=== PATIENT | male | born 1985 | race Caucasian/White ===

== ENCOUNTER 2017-05-27 10:31 | Emergency (ER) | payer OTHER ==
[2017-05-27 10:45] VITALS: RESP 16
--- NOTE | 2017-05-27 13:04 | EDPHY ---
H & P Time Seen by Provider: 05/27/17 11:23 HPI/ROS: CHIEF COMPLAINT: Left middle finger injury HISTORY OF PRESENT ILLNESS: 31-year-old male presents to the emergency department with injury to the right middle finger. The patient was at work and accidentally cut his finger on a piece of metal. The incident happened just prior to arrival. He is right-hand dominant. He is unsure of his last tetanus shot. Denies any other trauma or injury. ROS: Denies numbness or tingling in his fingers, retained foreign body. Past Medical/Surgical History: Negative Social History: Single and lives in [place] Smoking Status: Never smoked Physical Exam: On examination the patient has a 1.5 cm laceration over the dorsal aspect of his left 3rd finger overlying proximal phalanx. Normal sensation to light touch. No palpable bony tenderness. Obvious extensor tendon laceration noted. No evidence of retained foreign body. Full range of motion of his fingers including full extension. The other fingers do not appear injured. Constitutional: Initial Vital Signs Temperature (C) 36.9 C 05/27/17 10:42 Heart Rate 81 05/27/17 10:42 Respiratory Rate 16 05/27/17 10:42 Blood Pressure 139/105 H 05/27/17 10:42 O2 Sat (%) 93 05/27/17 10:42 O2 Delivery Mode Room Air Allergies/Adverse Reactions: No Known Allergies Allergy (Unverified 05/27/17 10:45) Home Medications: Medication Instructions Recorded Albuterol 5 mg/ml INH 05/27/17 Cephalexin [Keflex] 500 mg PO QID #28 cap 05/27/17 MDM/Departure - MDM Procedures: Laceration repair. Verbal consent was obtained from the patient. The 1.5 cm laceration on the left middle finger was anesthetized using 1% lidocaine with epinephrine. The wound was irrigated with saline, draped and explored to its base with a gloved finger. There were no deep structures involved. Complete flexor tendon laceration noted. The wound was repaired with 5 0 Ethilon, 5 sutures. The wound repair was simple. The procedure was performed by myself. Medications Given: Discontinued Medications Diphtheria/Tetanus/Acell Pertussis (Boostrix) 0.5 ml IM .ONCE ONE Stop: 05/27/17 13:08 Last Admin: 05/27/17 13:21 Dose: 0.5 ml ED Course/Re-evaluation: 31-year-old male presents to the emergency department with left middle finger injury. The wound was repaired. He did have an obvious extensor tendon laceration. I did speak with Dr. Stefanie Ohara who agrees with closing the skin, placing the patient on Keflex and splint, and she would see him in follow-up this week. Patient was given follow-up information. He also received tetanus shot in the emergency department. He was given wound care precautions. - Depart Disposition: Home, Routine, Self-Care Clinical Impression: Laceration extensor tendon finger Laceration of left middle finger Qualifiers: Encounter type: initial encounter Damage to nail status: without damage Foreign body presence: without foreign body Qualified Code(s): S61.213A - Laceration without foreign body of left middle finger without damage to nail, initial encounter Condition: Good Instructions: Care For Your Stitches (ED), Laceration (ED), Tendon Laceration ( ED), Acute Wounds (ED) Additional Instructions: You have a laceration to your left extensor tendon that will need to be repaired by the on-call hand surgeon, Dr. Stefanie Ohara. Please arrange for a follow-up appointment to be seen by Thursday. Start Keflex 500 mg 4 times daily for 1 week to prevent infection. Keep dressing and finger splint on until follow-up with orthopedic hand surgeon. Ibuprofen 600 mg every 8 hours as needed for pain. Your given a tetanus shot today in the emergency department. Please document this at home for your records. Prescriptions: Cephalexin [Keflex] 500 mg PO QID #28 cap Referrals: Stefanie Ohara MD [Medical Doctor] - 1-2 days without fail (Hand surgeon on-call )
[2017-05-27] MEDS ORDERED: TDAP ADULT 0.5 ML INJ (BOOSTRIX) IM ONE (13:07)
[2017-05-27 13:26] VITALS: BP 128/86; PULSE 78; TEMP 98.2; O2SAT 96
== END 2017-05-27 13:26 | disposition home or self-care (01) ==
PROC: 0HQGXZZ Repair Left Hand Skin, External Approach (ICD-10-PCS; principal; 2017-05-27)
DX: S56.424A Laceration of extensor muscle, fascia and tendon of left middle finger at forearm level, initial encounter (principal); Z23 Encounter for immunization; W45.8XXA Other foreign body or object entering through skin, initial encounter; Y92.69 Other specified industrial and construction area as the place of occurrence of the external cause; Y99.0 Civilian activity done for income or pay; Y93.89 Activity, other specified